=== PATIENT | female | born 1955 | race Caucasian/White ===

== ENCOUNTER 2023-03-24 11:11 | Emergency (ER) | payer MEDICARE, MEDICAID ==
[2023-03-24 11:51] LABS: APPEARANCE,URINE CLOUDY (CLEAR); BILIRUBIN,URINE NEGATIVE (NEGATIVE); COLOR,URINE YELLOW; GLUCOSE,URINE NEGATIVE (NEGATIVE); KETONES,URINE NEGATIVE (NEGATIVE); LEUKOCYTE ESTERASE,URINE MODERATE (NEGATIVE); NITRITE,URINE NEGATIVE (NEGATIVE); OCCULT BLOOD,URINE MODERATE (NEGATIVE); PH,URINE 5.5 (5.0-8.0); PROTEIN,URINE 100 mg/dL (NEGATIVE)
[2023-03-24 11:55] LABS: BACTERIA,URINE FEW /HPF; RBC,URINE 0-5 /HPF; SQUAMOUS EPITHELIAL CELLS,UR FEW /HPF; WBC,URINE >100 /HPF
[2023-03-24] MEDS ORDERED: Ciprofloxacin 250 MG Tab ONE (13:00)
== END 2023-03-24 13:16 | disposition home or self-care (01) ==
LOC: LB.ED 11:11
DX: N39.0 Urinary tract infection, site not specified (principal); I25.2 Old myocardial infarction; Z88.2 Allergy status to sulfonamides
CPT/HCPCS: 81001; 87086; 99283; A9270